=== PATIENT | female | born 1990 | race Caucasian/White ===

== ENCOUNTER 2016-08-01 23:24 | Emergency (ER) | payer MEDICAID ==
[~2016-08-01 23:24] MED LIST: AMLODIPINE BESY10 MG PO; BACTRIM DS TABL1 TA1 PO; BACTRIM DS TABL1 TAB PO; CLINDAMYCIN HC300 MG PO; FAMOTIDINE20 M1 PO; FLAGYL PO; IRON1 TA1 PO; KEFLEX500 MG PO; LANTUS100 UNITS/; LASIX PO; LIPITOR PO; NAPROSYN500 MG PO; NO MEDICATIONS; ONDANSETRON ODT4 MG SL; PHENERGAN25 M1 PO; RAMIPRIL2.5 MG PO; TESSALON200 MG PO; [UNRECOGNIZED DRUG - OTHER] TOP
== END 2016-08-02 00:50 | disposition home or self-care (01) ==
LOC: CED 23:24 → CFTX 23:58 → CED 23:58
DX: Z53.21 Procedure and treatment not carried out due to patient leaving prior to being seen by health care provider (principal)